=== PATIENT | male | born 1970 | race Caucasian/White ===

== ENCOUNTER → 2024-12-02 | Outpatient (CLI) | payer SELFPAY ==
--- NOTE | 2024-12-02 18:24 | CT_ITS ---
PROCEDURE: EXTREMITY LOWER WITHOUT CONTRA 12/02/2024 REASON FOR EXAM: RIGHT KNEE PAIN TECHNIQUE: Axial CT images of the right knee obtained without intravenous contrast. Coronal and Sagittal reconstruction series were provided. One or more dose reduction techniques were used (e.g., Automated exposure control, adjustment of the mA and/or kV according to patient size, use of iterative reconstruction technique RADIATION DOSE SUMMARY: CTDlvol: 15.4 mGy DLP: 519 mGycm COMPARISON: None FINDINGS: No fracture. Lateral patellar tilt. A corticated calcification adjacent to the lateral patella may be the sequela of remote injury. No significant joint effusion. Mild tricompartmental osteophyte formation, with mild joint space narrowing in the medial compartment. Mild prepatellar edema. Bone islands in the medial tibial plateau and lateral femoral condyle. Mild atherosclerotic calcification of the popliteal and proximal calf arteries. CT/Extremity Lower without Contra IMPRESSION: 1. No acute osseous abnormality. Mild prepatellar edema. 2. Mild osteoarthritis. 3. Lateral patellar tilt. Reading Location: [id number]
== END | disposition home or self-care (01) ==
DX: M25.561 Pain in right knee (principal)
CPT/HCPCS: 73700